=== PATIENT | female | born 1960 | race African-American/Black ===

== ENCOUNTER 2019-05-01 06:00 | Day surgery (SDC) | payer MEDICARE, OTHER ==
[2019-04-30 11:42] VITALS: BMI 42.7
--- NOTE | 2019-05-01 08:15 | HP ---
Admitting History and Physical - Admission Chief Complaint: abdominal bulge History of Present Illness: 58 y.o. female s/p robotic left nephrectomy presents with upper midline abdominal bulge post surgery. CT showed incisional hernia containing bowel loops History Source: Patient Limitations to Obtaining History: No Limitations - Past Medical History Cardiovascular: Yes: HTN Renal/: Yes: Other (renal cell ca) ...: No Psych: Yes: Bipolar, Depression Endocrine: Yes: Diabetes Mellitus - Smoking History Smoking history: Never smoked Have you smoked in the past 12 months: No - Alcohol/Substance Use Hx Alcohol Use: No Home Medications - Allergies Allergies/Adverse Reactions: Allergies Allergy/AdvReac Type Severity Reaction Status Date / Time chocolate flavor Allergy Verified 04/30/19 11:53 No Known Drug Allergies Allergy Verified 04/30/19 11:53 tomato Allergy Verified 04/30/19 11:52 - Home Medications Home Medications: Ambulatory Orders Aripiprazole [Abilify] 30 mg PO HS 04/30/19 Atorvastatin Ca [Lipitor] 20 mg PO HS 04/30/19 Bimatoprost [Lumigan] 1 drop IO DAILY 04/30/19 Citalopram Hydrobromide [Celexa -] 20 mg PO DAILY 04/30/19 Clonazepam [Klonopin] 1 mg PO DAILY 04/30/19 Ferrous Sulfate [Iron] 325 mg PO BID 04/30/19 Linagliptin [Tradjenta] 20 mg PO DAILY 04/30/19 Losartan/Hydrochlorothiazide [Losartan-Hctz 100-12.5 mg Tab] 1 each PO DAILY Insulin Lispro [Humalog Boo Kwikpen] 8 unit SQ ASDIR 05/01/19 Review of Systems - Review of Systems Constitutional: reports: No Symptoms HENT: reports: No Symptoms Neck: reports: No Symptoms Cardiovascular: reports: No Symptoms Respiratory: reports: No Symptoms Gastrointestinal: reports: Other (upper midline abdominal bulge) Genitourinary: reports: No Symptoms Breasts: reports: No Symptoms Reported Musculoskeletal: reports: No Symptoms Integumentary: reports: No Symptoms Physical Examination Vital Signs: Vital Signs Temperature 99.1 F 05/01/19 06:59 Pulse Rate 105 H 05/01/19 06:59 Respiratory Rate 20 05/01/19 06:59 Blood Pressure 147/87 05/01/19 06:59 O2 Sat by Pulse Oximetry (%) 96 05/01/19 07:00 Constitutional: Yes: Obese Eyes: Yes: Conjunctiva Clear HENT: Yes: Normocephalic Neck: Yes: Supple Cardiovascular: Yes: Regular Rate and Rhythm Respiratory: Yes: CTA Bilaterally Gastrointestinal: Yes: Soft, Abdomen, Obese, Hernia (partially reducible upper midline) ...Rectal Exam: Yes: Deferred Renal/: Yes: WNL Musculoskeletal: Yes: WNL Extremities: Yes: WNL Neurological: Yes: Alert, Oriented Imaging - Results Cat Scan: Report Reviewed, Image Reviewed Problem List - Problems (1) Incisional hernia of anterior abdominal wall with obstruction Assessment/Plan: Robotic incisional hernia repair with mesh Code(s): K43.0 - INCISIONAL HERNIA WITH OBSTRUCTION, WITHOUT GANGRENE
[2019-05-01] MEDS ORDERED: KETOROLAC TROMETHAMINE 30 MG/1 ML VIAL ONE (08:27)
[2019-05-01] MEDS ORDERED: LIDOCAINE HCL/PF 2% SDV 5ML VIAL ONE (08:27)
[2019-05-01] MEDS ORDERED: DEXAMETHASONE SOD PHOSPHATE 4 MG/1 ML VIAL ONE (08:27)
[2019-05-01] MEDS ORDERED: fentaNYL CITRATE 250 MCG/5 ML VIAL ONE (08:27)
[2019-05-01] MEDS ORDERED: ceFAZolin SODIUM 1 GM VIAL ONE (08:27)
[2019-05-01] MEDS ORDERED: SUCCINYLCHOLINE CHLORIDE 200 MG/10 ML SYRINGE ONE (08:28)
[2019-05-01] MEDS ORDERED: ROCURONIUM BROMIDE 50 MG/5 ML SYRINGE ONE (08:28)
[2019-05-01] MEDS ORDERED: PROPOFOL 20 ML ONE (08:28)
[2019-05-01] MEDS ORDERED: MIDAZOLAM HCL 2 MG/2 ML SINGLE DOSE VIAL ONE (08:28)
[2019-05-01] MEDS ORDERED: ceFAZolin SODIUM 1 GM VIAL IVPB ONE (08:43)
[2019-05-01] MEDS ORDERED: BUPIVACAINE HCL/PF 0.5% (5MG/ML) 10 ML VIAL IJ ONE (09:08)
[2019-05-01] MEDS ORDERED: NEOSTIGMINE METHYLSULFATE 0.5 MG/ML - 10 ML MDV ONE (10:57)
[2019-05-01] MEDS ORDERED: GLYCOPYRROLATE 0.2 MG/1 ML VIAL ONE (10:57)
--- NOTE | 2019-05-01 11:16 | OP ---
Operative Note - Note: Operative Date: 05/01/19 Pre-Operative Diagnosis: Incisional hernia Operation: Robotic incisional hernia repair with mesh and RAYSA Findings: Epigastric midline hernia with incarcerated omentum and small bowel Implants: Symbotex mesh 15 x 10 cm Surgeon: Julian Soto Refinery Operator: Diana Valverde Anesthesiologist/CARVING MACHINE OPERATOR: Raj Sabillon Anesthesia: General Estimated Blood Loss (mls): 15 Operative Report Dictated: Yes
[2019-05-01] MEDS ORDERED: oxyCODONE HCL 5 MG TABLET PO PRN ×2 (11:19→11:24)
[2019-05-01] MEDS ORDERED: ONDANSETRON 4 MG/2 ML VIAL IVPUSH PRN (11:19)
[2019-05-01] MEDS ORDERED: PROMETHAZINE HCL 25 MG/1 ML VIAL IVPB PRN (11:19)
[2019-05-01] MEDS ORDERED: ACETAMINOPHEN 325 MG TABLET (FP) PO PRN (11:24)
[2019-05-01] MEDS ORDERED: SODIUM CHLORIDE 1,000 ML IV SCH (11:30)
[2019-05-01] MEDS: INSULIN SLIDING SCALE (NOVOLOG) 1 VIAL SQ SCH ×2 (11:45→18:06)
[2019-05-01] MEDS ORDERED: INSULIN LISPRO 8 UNIT SQ SCH (11:45)
--- NOTE | 2019-05-01 11:58 | SURG ---
Surgery Puzzle Assembler Note Puzzle Assembler: Diana Valverde PA-C Date of Service: 05/01/19 Diagnosis: Incisional hernia Procedure: Robotic incisional hernia repair with mesh and RAYSA I was present for the entirety of the operative procedure. For further detail, please refer to operative report. Visit type - Case Type Case Type: Scheduled - Emergency Emergency Visit: No - New patient This patient is new to me today: Yes Date on this admission: 05/01/19
[2019-05-01] MEDS ORDERED: INSULIN (NOVOLOG) ASPART 100 UNITS/ML 10ML VIAL ONE (12:12)
[2019-05-01] MEDS: DOCUSATE SODIUM 100 MG CAPSULE (FP) PO SCH ×2 (17:59→21:09)
[2019-05-01] MEDS: FERROUS SO4 325 MG TABLET (FP) PO SCH (17:59)
[2019-05-01] MEDS ORDERED: PT OWN MED DRAWER 7, Y5N ONE (20:54)
[2019-05-01] MEDS: HEPARIN NA (PORCINE) 5,000 UNITS/ML 1ML VIAL SQ SCH (21:09)
[2019-05-01] MEDS ORDERED: ARIPiprazole 15 MG TABLET PO SCH (22:00)
[2019-05-01] MEDS ORDERED: ATORVASTATIN CA 20 MG TABLET (FP) PO SCH (22:00)
[2019-05-02] MEDS ORDERED: INSULIN (NOVOLOG) ASPART 100 UNITS/ML 10ML VIAL ONE (06:11)
[2019-05-02] MEDS: DOCUSATE SODIUM 100 MG CAPSULE (FP) PO SCH (06:16)
[2019-05-02] MEDS: INSULIN SLIDING SCALE (NOVOLOG) 1 VIAL SQ SCH (06:16)
[2019-05-02 08:04] LABS: HEMATOCRIT 35.7 % (32.4-45.2); HEMOGLOBIN 11.6 GM/dL (10.7-15.3); MCHC 32.5 g/dl (32.0-36.0); MEAN CELL VOLUME 83.1 fl (80-96); PLATELET COUNT 234 K/MM3 (134-434); RDW 15.3 % (11.6-15.6); WHITE BLOOD COUNT 12.2 K/mm3 (4.0-10.0)
[2019-05-02 08:33] LABS: CALCIUM 8.6 mg/dL (8.5-10.1); CREATININE 1.8 mg/dL (0.55-1.3); POTASSIUM 4.5 mmol/L (3.5-5.1)
[2019-05-02] MEDS: FERROUS SO4 325 MG TABLET (FP) PO SCH (08:50)
[2019-05-02] MEDS ORDERED: PATIENT'S OWN MEDICATION (NON-FORMULARY) (Losartan/Hydrochlorothiazide [Losartan-Hctz 100- PO SCH (10:00)
[2019-05-02] MEDS ORDERED: LOSARTAN POTASSIUM 50 MG TABLET (FP) PO SCH (10:00)
[2019-05-02] MEDS ORDERED: clonazePAM 0.5 MG TABLET PO SCH (10:00)
[2019-05-02] MEDS ORDERED: HYDROCHLOROTHIAZIDE 12.5 MG CAPSULE (FP) PO SCH (10:00)
[2019-05-02] MEDS ORDERED: PATIENT'S OWN MEDICATION (NON-FORMULARY) (Bimatoprost [Lumigan] 1 DROP) IO SCH (10:00)
[2019-05-02] MEDS ORDERED: CITALOPRAM HYDROBROMIDE 20 MG TABLET PO SCH (10:00)
[2019-05-02] MEDS ORDERED: LINAGLIPTIN PO SCH (10:00)
[2019-05-02 10:19] VITALS: BP 122/77; PULSE 90; TEMP 98
[2019-05-02] MEDS: HEPARIN NA (PORCINE) 5,000 UNITS/ML 1ML VIAL SQ SCH (10:19)
--- NOTE | 2019-05-04 09:10 | OP ---
DATE OF OPERATION: 05/01/2019 PROCEDURE: Robotic-assisted laparoscopic incisional hernia repair with mesh, lysis of adhesions. PREOPERATIVE DIAGNOSIS: Incisional hernia. POSTOPERATIVE DIAGNOSES: Incisional hernia and intra-abdominal adhesions. SURGEON: Julian Soto MD HEEL REDUCER: ADRYAN Davila ANESTHESIA: General endotracheal. REASON FOR PROCEDURE: This is a 58-year-old female who is status post a robotic left nephrectomy with specimen extraction at the upper midline region. This patient developed an incisional hernia. CT scan revealed a midline abdominal wall hernia containing a loop of small bowel. Due to symptoms of pain on exertion, patient was advised elective incisional hernia repair. Consent was obtained after discussing risks, benefits, and alternatives to the procedure. PROCEDURE IN DETAIL: Patient was brought to the operating room and placed in supine position. General endotracheal anesthesia was administered. The abdomen was prepped and draped in the usual sterile fashion. Both hands were then tucked to the side. The peritoneal cavity was entered with a Veress needle technique through an 8- mm left subcostal incision. Pneumoperitoneum was established. Insertion of the port proved to be unsuccessful so that the peritoneal cavity was entered through an 8-mm right subcostal incision. The 3D laparoscope was inserted, and the peritoneal cavity was carefully inspected and was noted to be free of any inadvertent injury. Dense adhesions of the omentum and the small bowel were noted inside the hernia. An 8-mm port was inserted at the left subcostal incision, and 2 other 8-mm ports were inserted on the left flank in a straight line 8 cm away from each other under direct vision. The middle port at left flank was used as the camera port. The target organ was set, and the robotic arms were docked. The fenestrated bipolar forceps was inserted at the lower most port in the left lower quadrant, and the EndoWrist Mela were inserted at the left subcostal port and at this time connected to monopolar cautery. The undersigned scrubbed out and commenced the console part of the procedure. The incarcerated hernia was taken down sharply using the EndoWrist Mela with the aid of the fenestrated bipolar. After this was completed, the hernia defect, which was about 8 cm x 4 cm in size, was closed with continuous V -Loc No. 1 nonabsorbable suture. After primary closure, the repair was reinforced with a 10 x 15-cm Symbotex mesh with adhesion barrier. This mesh was anchored to the posterior abdominal wall with 2 V-Loc 2-0 absorbable sutures. After the reinforcement and the repair were deemed satisfactory, the peritoneal cavity was carefully inspected and was noted to be free of active bleeding or any abnormal fluid leak. The instruments were then removed as well as the robotic arms were undocked. The pneumoperitoneum was evacuated, and the ports were removed. The wounds were closed with subcuticular Biosyn 4-0 sutures reinforced with Dermabond. Patient was successfully extubated and transferred to the post anesthesia care unit in satisfactory condition. Estimated blood loss was about 16 mL. Wound class clean. The patient received 2 g of Ancef prior to the start of the procedure. Peña [id number] MTDD
== END 2019-05-02 11:04 | disposition home or self-care (01) ==
LOC: JASU-SURG 06:00 → JASUSAT 06:00 → J8W 16:50 → JASUSAT 05-02 11:04
PROVIDERS: ATTEND Surgery
PROC: 8E0W4CZ Robotic Assisted Procedure of Trunk Region, Percutaneous Endoscopic Approach (ICD-10-PCS; 2019-05-01)
PROC: 0WUF4JZ Supplement Abdominal Wall with Synthetic Substitute, Percutaneous Endoscopic Approach (ICD-10-PCS; principal; 2019-05-01 08:00)
DX: K43.2 Incisional hernia without obstruction or gangrene (principal); K66.0 Peritoneal adhesions (postprocedural) (postinfection); E11.9 Type 2 diabetes mellitus without complications; I10 Essential (primary) hypertension
CPT/HCPCS: 49654; S2900; 36415; 80048; 82962; 85027; 94760; J1644